=== PATIENT | male | born 1990 | race Caucasian/White ===

== ENCOUNTER 2018-10-11 22:16 | Emergency (ER) | payer OTHER ==
[2018-10-11] MEDS ORDERED: NS 1,000 ML IV ONE (22:30)
[2018-10-11] MEDS ORDERED: ONDANSETRON 4 MG/2 ML VIAL IVP ONE (22:30)
--- NOTE | 2018-10-11 22:40 | EDPHY ---
H & P Stated Complaint: Seen in [place], n/v/d since last night, Dehydration Time Seen by Provider: 10/11/18 22:30 HPI/ROS: HPI The patient presents with nausea, vomiting, diarrhea. The patient comes from [facility] in [place]. He was seen in the emergency department there. He was recommended for admission, however he did not want to as it was too far from his home in [place] so he left and came here for possible admission. Last night, he said he drink large amount of alcohol. He woke up at 6:00 a.m. And began to vomit and had multiple episodes of vomiting. This was accompanied by diarrhea. Patient also reports epigastric abdominal pain which is moderate in severity and burning in nature. In the other emergency department he was given 2 L of normal saline, IV Zofran, famotidine, Phenergan, Ativan, GI cocktail without any improvement in his symptoms. He was unable to tolerate a p.o. Challenge. He had labs performed which revealed a leukocytosis of 17.8. He was thought to have alcoholic gastritis. REVIEW OF SYSTEMS 10 systems were reviewed and negative with the exception of the elements mentioned in the history of present illness. PMHx: Hospitalized for colitis 2 weeks ago per his report Soc Hx: Recent alcohol use, frequent marijuana use FHx: PHYSICAL General Appearance: Alert, no distress Eyes: Pupils equal and round no pallor or injection ENT, Mouth: Mucous membranes moist Respiratory: There are no retractions, lungs are clear to auscultation Cardiovascular: Regular rate and rhythm Gastrointestinal: Abdomen is soft with mild tenderness in the epigastrium, no masses, bowel sounds normal Neurological: A&O, moves all extremities Skin: Warm and dry, no rashes Musculoskeletal: Neck is supple non tender Extremities: symmetrical, full range of motion Psychiatric: Patient is oriented X 3, there is no agitation Source: Patient, Old records Exam Limitations: No limitations - Personal History Current Tetanus Diphtheria and Acellular Pertussis (TDAP): Yes - Medical/Surgical History Hx Asthma: No Hx Chronic Respiratory Disease: No Hx Diabetes: No Hx Cardiac Disease: No Hx Renal Disease: Yes Hx Cirrhosis: No Hx Alcoholism: No Hx HIV/AIDS: No Hx Splenectomy or Spleen Trauma: No Other PMH: Nephritis, Gastritis - Social History Smoking Status: Former smoker Constitutional: Initial Vital Signs Temperature (C) 37.1 C 10/11/18 22:19 Heart Rate 83 10/11/18 22:19 Respiratory Rate 16 10/11/18 22:19 Blood Pressure 144/89 H 10/11/18 22:19 O2 Sat (%) 96 10/11/18 22:19 O2 Delivery Mode Room Air Allergies/Adverse Reactions: ampicillin Allergy (Verified 10/11/18 22:22) Home Medications: Medication Instructions Recorded Flonase Allergy Relief 10/11/18 Famotidine [Pepcid 20 MG (*)] 20 mg PO BID #30 tab 10/12/18 Ondansetron Odt [Zofran Odt 4 mg 4 mg PO Q4 PRN #10 tab 10/12/18 (*)] Medical Decision Making Differential Diagnosis: 28-year-old male with history of recent alcohol binge presents with nausea, vomiting, diarrhea throughout the day today. Thought to be related to alcoholic gastritis. Seen at outside hospital emergency department with plan for admission, however this was too far from his house so he elected to come here. Here, he is generally well-appearing. He does not have any ongoing vomiting. His abdominal exam is not worrisome. Here, we repeated his labs which demonstrate and improving leukocytosis. Other labs are unremarkable. He still felt nauseated, thus he was given IV fluids and antiemetics. I watched him here for a total of 5 hr and he did not have any ongoing vomiting. He felt much better on reassessment. His repeat abdominal exam was benign. He said he is feeling well enough to go home, thus I do not think he needs admission and I will discharge him to his house with instructions for famotidine and Zofran. I have discussed return precautions with him. Differential diagnoses considered include alcoholic gastritis, cannabinoid hyperemesis syndrome, gastroenteritis. - Data Points Laboratory Results: Laboratory Results 10/11/18 22:35 10/11/18 22:35 10/11/18 10/11/18 22:35 22:35 WBC 10.84 10^3/uL H 10^3/uL (3.80-9.50) RBC 4.93 10^6/uL 10^6/uL (4.40-6.38) Hgb 13.3 g/dL L g/dL (13.7-17.5) Hct 40.8 % % (40.0-51.0) MCV 82.8 fL fL (81.5-99.8) MCH 27.0 pg L pg (27.9-34.1) MCHC 32.6 g/dL g/dL (32.4-36.7) RDW 13.1 % % (11.5-15.2) Plt Count 293 10^3/uL 10^3/uL (150-400) MPV 9.1 fL fL (8.7-11.7) Neut % (Auto) Not Reported Lymph % (Auto) Not Reported Ware % (Auto) Not Reported Eos % (Auto) Not Reported Baso % (Auto) Not Reported Nucleat RBC Rel Count Not Reported Absolute Neuts (auto) Not Reported Absolute Lymphs (auto) Not Reported Absolute Monos (auto) Not Reported Absolute Eos (auto) Not Reported Absolute Basos (auto) Not Reported Absolute Nucleated RBC Not Reported Immature Gran % Not Reported Seg Neutrophils % 74.0 % % Band Neutrophils % 0.0 % % Lymphocytes % 23.0 % % Monocytes % 1.0 % % Eosinophils % 0.0 % % Basophils % 2.0 % % Metamyelocytes % 0.0 % % Myelocytes % 0.0 % % Promyelocytes % 0.0 % % Blast Cells % 0.0 % % Immature Gran # Not Reported Absolute Seg Neuts 8.02 10^3/uL H 10^3/uL (1.70-6.50) Absolute Band Neuts 0.00 10^3/uL 10^3/uL (0.00-0.70) Absolute Lymphocytes 2.49 10^3/uL 10^3/uL (1.00-3.00) Absolute Monocytes 0.11 10^3/uL L 10^3/uL (0.30-0.80) Absolute Eosinophils 0.00 10^3/uL L 10^3/uL (0.03-0.40) Absolute Basophils 0.22 10^3/uL H 10^3/uL (0.02-0.10) Absolute Metamyelocyte 0.00 10^3/mL 10^3/mL (0.00-0.00) Absolute Myelocytes 0.00 10^3/mL 10^3/mL (0.00-0.00) Absolute Promyelocytes 0.00 10^3/uL 10^3/uL (0.00-0.00) Absolute Plasma Cells 0.00 10^3/uL 10^3/uL (0.00-0.00) Nucleated RBCs 0 /100 WBC /100 WBC (0-0) RBC/WBC/PLT Morphology NORMAL (NORMAL) Absolute Blast Cells 0.00 10^3/uL 10^3/uL (0.00-0.00) Plasma Cells % 0.0 % % Platelet Estimate ADEQUATE (ADEQ) Sodium 141 mEq/L mEq/L (135-145) Potassium 4.1 mEq/L mEq/L (3.5-5.2) Chloride 107 mEq/L mEq/L (97-110) Carbon Dioxide 23 mEq/l mEq/l (22-31) Anion Gap 11 mEq/L mEq/L (6-14) BUN 15 mg/dL mg/dL (7-23) Creatinine 0.9 mg/dL mg/dL (0.7-1.3) Estimated GFR > 60 Glucose 95 mg/dL mg/dL (70-100) Calcium 9.3 mg/dL mg/dL (8.5-10.4) Total Bilirubin 0.8 mg/dL mg/dL (0.1-1.4) AST 42 IU/L IU/L (17-59) ALT 45 IU/L IU/L (21-72) Alkaline Phosphatase 47 IU/L IU/L (38-126) Total Protein 7.2 g/dL g/dL (6.3-8.2) Albumin 4.5 g/dL g/dL (3.5-5.0) Lipase 33 IU/L IU/L (23-300) Medications Given: Discontinued Medications Haloperidol Lactate (Haldol Injection) 2.5 mg IVP EDNOW ONE Stop: 10/12/18 00:28 Last Admin: 10/12/18 00:35 Dose: 2.5 mg Sodium Chloride (Ns) 1,000 mls @ 0 mls/hr IV EDNOW ONE; Wide Open PRN Reason: Protocol Stop: 10/11/18 22:31 Last Admin: 10/11/18 22:43 Dose: 1,000 mls Ondansetron HCl (Zofran) 4 mg IVP EDNOW ONE Stop: 10/11/18 22:31 Last Admin: 10/11/18 22:40 Dose: 4 mg Promethazine HCl (Phenergan) 12.5 mg IVP ONCE ONE Stop: 10/11/18 23:32 Last Admin: 10/11/18 23:46 Dose: 12.5 mg Departure - Departure Disposition: Home, Routine, Self-Care Clinical Impression: Alcoholic gastritis Qualifiers: Chronicity: acute Gastritis bleeding: without bleeding Qualified Code(s): K29.20 - Alcoholic gastritis without bleeding Nausea & vomiting Qualifiers: Vomiting type: unspecified Vomiting Intractability: non-intractable Qualified Code(s): R11.2 - Nausea with vomiting, unspecified Condition: Good Instructions: Gastritis (ED), Acute Nausea and Vomiting (ED) Additional Instructions: Please make sure to not drink any alcohol. Follow up with your primary care doctor for recheck in 1-2 days if you have any ongoing symptoms. Referrals: NONE *PRIMARY CARE P,. [Primary Care Provider] - As per Instructions Prescriptions: Famotidine [Pepcid 20 MG (*)] 20 mg PO BID #30 tab Ondansetron Odt [Zofran Odt 4 mg (*)] 4 mg PO Q4 PRN #10 tab PRN Reason: Nausea/Vomiting, Can'T Take Po
[2018-10-11 22:46] LABS: PLATELET COUNT 293 10^3/uL (150-400)
[2018-10-11] MEDS ORDERED: PROMETHAZINE HCL 25 MG/ML INJ IVP ONE (23:31)
[2018-10-12] MEDS ORDERED: HALOPERIDOL LACT 5 MG/ML INJ IVP ONE (00:27)
[2018-10-12] MEDS ORDERED: ONDANSETRON 4MG PREPACK#2 BTL TAKEHOME ONE (03:35)
[2018-10-12 03:43] VITALS: BP 117/75
== END 2018-10-12 03:42 | disposition home or self-care (01) ==
DX: K29.20 Alcoholic gastritis without bleeding (principal); R11.2 Nausea with vomiting, unspecified; E86.9 Volume depletion, unspecified
CPT/HCPCS: 96374; J1630; J2405; J2550